=== PATIENT | male | born 1985 | race African-American/Black ===

== ENCOUNTER 2023-06-23 17:37 | Inpatient (IN) | payer OTHER ==
[2023-06-23 18:01] VITALS: BMI 24.3
[2023-06-23] MEDS ORDERED: MELATONIN 5 MG TABLETS PO SCH (22:00)
[2023-06-23] MEDS ORDERED: MAGNESIUM HYDROX 2400MG/30ML ORAL SUSPENSION 30 ML CUP PO PRN (22:37)
[2023-06-23] MEDS ORDERED: P-EPHED 60MG/TRIPROLIDI 2.5MG TABLET PO PRN (22:37)
[2023-06-23] MEDS ORDERED: ACETAMINOPHEN 325 MG TABLET (FP) PO PRN (22:37)
[2023-06-23] MEDS ORDERED: guaiFENesin 600 MG TABLET.ER (FP) PO PRN (22:37)
[2023-06-23] MEDS ORDERED: BENZONATATE 200 MG CAPSULE PO PRN (22:37)
[2023-06-23] MEDS ORDERED: DOCUSATE SODIUM 100 MG CAPSULE (FP) PO PRN (22:37)
[2023-06-23] MEDS ORDERED: LOPERAMIDE HCL 2 MG CAPSULE PO PRN (22:37)
[2023-06-23] MEDS ORDERED: POLYETHYLENE GLYCOL (HEALTHYLAX) 3350 17 GM PACKET PO PRN (22:37)
[2023-06-23] MEDS ORDERED: BENZOCAINE/MENTHOL (CHLORASEPTIC ) LOZENGE MM PRN (22:37)
[2023-06-23] MEDS ORDERED: MAG HYDROX/AL HYDROX/SIMETH 30 ML UNIT-DOSE CUP PO PRN (22:37)
[2023-06-24] MEDS: APIXABAN 5 MG TABLET PO SCH ×3 (00:31→21:25)
[2023-06-24] MEDS: CARVEDILOL 6.25 MG TABLET (FP) PO SCH ×3 (00:31→21:25)
[2023-06-24] MEDS: SACUBITRIL/VALSARTAN 24 MG-26 MG TABLET PO SCH ×3 (00:34→21:25)
[2023-06-24] MEDS: EMPAGLIFLOZIN (JARDIANCE) 10 MG TABLET PO SCH (06:49)
[2023-06-24] MEDS: PRENATAL VITAMINS W/ FOLIC ACID TABLET (FP) PO SCH (09:38)
[2023-06-24] MEDS: TORSEMIDE 20 MG TABLET (FP) PO SCH (11:17)
[2023-06-24 13:56] LABS: URINE APPEARANCE CLEAR; URINE BILIRUBIN NEGATIVE (NEGATIVE); URINE COLOR YELLOW; URINE GLUCOSE (UA) NEGATIVE (NEGATIVE); URINE KETONE NEGATIVE (NEGATIVE); URINE LEUK ESTERASE NEGATIVE (NEGATIVE); URINE NITRITE NEGATIVE (NEGATIVE); URINE PROTEIN NEGATIVE (NEGATIVE); URINE UROBILINOGEN 0.2 mg/dL (0.2-1.0)
[2023-06-24 14:06] LABS: POTASSIUM 3.2 mmol/L (3.5-5.1)
[2023-06-24 14:16] LABS: HEMATOCRIT 37.1 % (35.4-49); MCH 28.5 pg (25.7-33.7); MCHC 32.4 g/dl (32.0-35.9); MEAN CELL VOLUME 88.2 fl (80-96); MEAN PLT VOLUME 8.6 fl (7.5-11.1); PLATELET COUNT 203 10^3/uL (134-434); RDW 18.6 % (11.9-15.9); WHITE BLOOD COUNT 6.5 K/mm3 (4.0-10.0)
[2023-06-24 14:19] LABS: ALBUMIN 3.1 g/dl (3.4-5.0); BLOOD UREA NITROGEN 24.1 mg/dL (7-18); CALCIUM 8.6 mg/dL (8.5-10.1)
[2023-06-24 14:22] LABS: CREATININE 1.1 mg/dL (0.55-1.3)
[2023-06-24 14:23] LABS: BILIRUBIN,TOTAL 1.3 mg/dL (0.2-1)
[2023-06-24] MEDS ORDERED: AMMONIUM LACTATE 12% LOTION 225 GM BOTTLE TP PRN (14:32)
[2023-06-24] MEDS: THIAMINE HCL 100 MG TABLET (FP) PO SCH (21:25)
[2023-06-24] MEDS: MONTELUKAST NA 10 MG TABLET PO SCH (21:25)
[2023-06-24] MEDS: diphenhydrAMINE HCL 50 MG CAPSULE PO PRN (23:43)
[2023-06-25] MEDS: EMPAGLIFLOZIN (JARDIANCE) 10 MG TABLET PO SCH (06:40)
[2023-06-25] MEDS: TORSEMIDE 20 MG TABLET (FP) PO SCH (09:47)
[2023-06-25] MEDS: APIXABAN 5 MG TABLET PO SCH ×2 (09:47→21:50)
[2023-06-25] MEDS: PRENATAL VITAMINS W/ FOLIC ACID TABLET (FP) PO SCH (09:47)
[2023-06-25] MEDS: CARVEDILOL 6.25 MG TABLET (FP) PO SCH ×2 (09:47→21:49)
[2023-06-25] MEDS: SACUBITRIL/VALSARTAN 24 MG-26 MG TABLET PO SCH ×2 (09:47→22:12)
[2023-06-25] MEDS ORDERED: TUBERCULIN PPD 5 TU/0.1ML VIAL ID ONE ×2 (10:00→10:44)
[2023-06-25] MEDS: POTASSIUM CHLORIDE TABS 20 MEQ TABLET.ER (FP) PO SCH ×2 (13:19→21:50)
[2023-06-25] MEDS: THIAMINE HCL 100 MG TABLET (FP) PO SCH (21:50)
[2023-06-25] MEDS: MONTELUKAST NA 10 MG TABLET PO SCH (21:50)
[2023-06-25] MEDS ORDERED: diphenhydrAMINE HCL 25 MG CAPSULE (FP) PO ONE (21:51)
[2023-06-25] MEDS: diphenhydrAMINE HCL 50 MG CAPSULE PO PRN (21:52)
[2023-06-26] MEDS: EMPAGLIFLOZIN (JARDIANCE) 10 MG TABLET PO SCH (07:24)
[2023-06-26] MEDS: APIXABAN 5 MG TABLET PO SCH ×2 (10:42→21:32)
[2023-06-26] MEDS: CARVEDILOL 6.25 MG TABLET (FP) PO SCH ×2 (10:42→21:32)
[2023-06-26] MEDS: PRENATAL VITAMINS W/ FOLIC ACID TABLET (FP) PO SCH (10:42)
[2023-06-26] MEDS: POTASSIUM CHLORIDE TABS 20 MEQ TABLET.ER (FP) PO SCH ×2 (10:42→21:32)
[2023-06-26] MEDS: TORSEMIDE 20 MG TABLET (FP) PO SCH (10:43)
[2023-06-26] MEDS: SACUBITRIL/VALSARTAN 24 MG-26 MG TABLET PO SCH ×2 (10:44→21:32)
[2023-06-26] MEDS: THIAMINE HCL 100 MG TABLET (FP) PO SCH (21:32)
[2023-06-26] MEDS: MONTELUKAST NA 10 MG TABLET PO SCH (21:32)
[2023-06-26 21:55] VITALS: BP 105/70; PULSE 101; RESP 18; TEMP 97.7
[2023-06-27] MEDS: EMPAGLIFLOZIN (JARDIANCE) 10 MG TABLET PO SCH (06:04)
== END 2023-06-27 02:20 | disposition short-term general hospital (02) | DRG 772 ==
LOC: YASAS 17:37 → Y5N 22:48
PROVIDERS: ADMIT Allergy & Immunology; ATTEND Psychiatry & Neurology Pain Medicine
PROC: HZ42ZZZ Group Counseling for Substance Abuse Treatment, Cognitive-Behavioral (ICD-10-PCS; principal; 2023-06-23)
DX: F10.20 Alcohol dependence, uncomplicated (principal); F14.20 Cocaine dependence, uncomplicated; F17.210 Nicotine dependence, cigarettes, uncomplicated; F19.280 Other psychoactive substance dependence with psychoactive substance-induced anxiety disorder; F19.282 Other psychoactive substance dependence with psychoactive substance-induced sleep disorder; I50.9 Heart failure, unspecified; E87.6 Hypokalemia; L85.3 Xerosis cutis; Z86.711 Personal history of pulmonary embolism; Z79.01 Long term (current) use of anticoagulants; Z95.0 Presence of cardiac pacemaker; Z99.89 Dependence on other enabling machines and devices
CPT/HCPCS: 0241U-QW; 36415; 80053; 81003; 82962; 85027; 86593; 86780; 93005; 93010

== ENCOUNTER 2023-06-26 22:54 | Inpatient (IN) | payer OTHER ==
[2023-06-26] MEDS ORDERED: FUROSEMIDE 40 MG/4 ML INJECTABLE VIAL ONE (23:52)
[2023-06-27] MEDS: FUROSEMIDE 40 MG/4 ML INJECTABLE VIAL IVPUSH ONE ×2 (00:07→10:54)
[2023-06-27 00:30] LABS: BASO % 1.4 % (0-2.0); EOS % 4.8 % (0-4.5); HEMATOCRIT 40.2 % (35.4-49); HEMOGLOBIN 13.2 GM/dL (11.7-16.9); LYMPH % 33.7 % (8-40); MCH 28.8 pg (25.7-33.7); MCHC 32.7 g/dl (32.0-35.9); MEAN CELL VOLUME 88.1 fl (80-96); MEAN PLT VOLUME 8.5 fl (7.5-11.1); MONO % 13.2 % (3.8-10.2); NEUT % 46.9 % (42.8-82.8); PLATELET COUNT 231 10^3/uL (134-434); RBC 4.57 M/mm3 (4.00-5.60); RDW 18.9 % (11.9-15.9); WHITE BLOOD COUNT 5.2 K/mm3 (4.0-10.0)
[2023-06-27 00:45] LABS: POTASSIUM 4.2 mmol/L (3.5-5.1)
[2023-06-27 00:47] LABS: CALCIUM 9.3 mg/dL (8.5-10.1)
[2023-06-27 00:48] LABS: BLOOD UREA NITROGEN 25.9 mg/dL (7-18)
[2023-06-27 00:51] LABS: CREATININE 1.3 mg/dL (0.55-1.3)
[2023-06-27 00:53] LABS: BILIRUBIN,TOTAL 0.9 mg/dL (0.2-1); TOT PROT 7.2 g/dl (6.4-8.2)
[2023-06-27 00:56] LABS: N-TERMINAL BNP 2661.9 pg/ml (5-125)
[2023-06-27] MEDS ORDERED: TRIMETHOBENZAMIDE HCL 200MG/2ML INJ IM ONE (01:28)
[2023-06-27] MEDS: TRIMETHOBENZAMIDE HCL 200MG/2ML INJ IM ONE (01:32)
[2023-06-27 06:22] VITALS: BMI 27.3
[2023-06-27] MEDS: FUROSEMIDE 40 MG/4 ML INJECTABLE VIAL IVPUSH SCH ×3 (06:44→13:49)
[2023-06-27 08:35] LABS: BASO % 1.2 % (0-2.0); EOS % 4.2 % (0-4.5); HEMATOCRIT 38.2 % (35.4-49); LYMPH % 33.4 % (8-40); MCH 29.3 pg (25.7-33.7); MCHC 33.9 g/dl (32.0-35.9); MEAN CELL VOLUME 86.2 fl (80-96); MEAN PLT VOLUME 8.4 fl (7.5-11.1); MONO % 15.7 % (3.8-10.2); NEUT % 45.5 % (42.8-82.8); PLATELET COUNT 229 10^3/uL (134-434); RBC 4.43 M/mm3 (4.00-5.60); RDW 18.6 % (11.9-15.9); WHITE BLOOD COUNT 4.8 K/mm3 (4.0-10.0)
[2023-06-27 08:48] LABS: POTASSIUM 3.8 mmol/L (3.5-5.1)
[2023-06-27 09:05] LABS: CALCIUM 9.4 mg/dL (8.5-10.1)
[2023-06-27 09:06] LABS: ALBUMIN 3.3 g/dl (3.4-5.0); MAGNESIUM 2.4 mg/dL (1.8-2.4)
[2023-06-27 09:09] LABS: CREATININE 1.3 mg/dL (0.55-1.3); PHOSPHOROUS 4.6 mg/dL (2.5-4.9)
[2023-06-27 09:10] LABS: BILIRUBIN,TOTAL 1.2 mg/dL (0.2-1)
[2023-06-27 09:11] LABS: TOT PROT 7.2 g/dl (6.4-8.2)
[2023-06-27] MEDS ORDERED: APIXABAN 5 MG TABLET PO SCH (10:00)
[2023-06-27] MEDS: NICOTINE 7 MG/24 HOURS TOPICAL PATCH TD SCH (10:54)
[2023-06-27] MEDS: APIXABAN 5 MG TABLET PO SCH (10:54)
[2023-06-27] MEDS: CARVEDILOL 6.25 MG TABLET (FP) PO SCH (10:54)
[2023-06-27 14:48] LABS: HIV INTERPRETATION NEGATIVE (NEGATIVE)
[2023-06-27] MEDS: EMPAGLIFLOZIN (JARDIANCE) 10 MG TABLET PO SCH (17:36)
[2023-06-27] MEDS: CARVEDILOL 3.125 MG TABLET (FP) PO SCH (22:28)
[2023-06-27] MEDS: MONTELUKAST NA 10 MG TABLET PO SCH (22:28)
[2023-06-27] MEDS: MELATONIN 5 MG TABLETS PO ONE (23:10)
[2023-06-28] MEDS: FUROSEMIDE 40 MG/4 ML INJECTABLE VIAL IVPUSH SCH (05:34)
[2023-06-28 08:02] LABS: POTASSIUM 3.8 mmol/L (3.5-5.1)
[2023-06-28 08:04] LABS: BASO % 1.1 % (0-2.0); HEMATOCRIT 39.7 % (35.4-49); HEMOGLOBIN 13.3 GM/dL (11.7-16.9); LYMPH % 31.4 % (8-40); MCH 28.9 pg (25.7-33.7); MCHC 33.4 g/dl (32.0-35.9); MEAN CELL VOLUME 86.5 fl (80-96); MEAN PLT VOLUME 8.6 fl (7.5-11.1); NEUT % 44.5 % (42.8-82.8); PLATELET COUNT 241 10^3/uL (134-434); RBC 4.59 M/mm3 (4.00-5.60); RDW 18.4 % (11.9-15.9); WHITE BLOOD COUNT 4.6 K/mm3 (4.0-10.0)
[2023-06-28 08:32] LABS: CALCIUM 9.4 mg/dL (8.5-10.1)
[2023-06-28 08:33] LABS: MAGNESIUM 2.3 mg/dL (1.8-2.4)
[2023-06-28 08:34] LABS: ALBUMIN 3.2 g/dl (3.4-5.0)
[2023-06-28 08:36] LABS: CREATININE 1.3 mg/dL (0.55-1.3)
[2023-06-28 08:37] LABS: BILIRUBIN,TOTAL 1.2 mg/dL (0.2-1); PHOSPHOROUS 4.6 mg/dL (2.5-4.9); TOT PROT 7.7 g/dl (6.4-8.2)
[2023-06-28] MEDS: FOLIC ACID 1 MG TABLET (FP) PO SCH (10:01)
[2023-06-29 08:31] LABS: POTASSIUM 4.1 mmol/L (3.5-5.1)
[2023-06-29 08:45] LABS: CALCIUM 9.3 mg/dL (8.5-10.1)
[2023-06-29 08:46] LABS: ALBUMIN 3.2 g/dl (3.4-5.0); BLOOD UREA NITROGEN 25.9 mg/dL (7-18)
[2023-06-29 08:49] LABS: CREATININE 1.3 mg/dL (0.55-1.3)
[2023-06-29 08:50] LABS: BILIRUBIN,TOTAL 1.1 mg/dL (0.2-1); TOT PROT 7.5 g/dl (6.4-8.2)
[2023-06-29 10:04] LABS: HIV INTERPRETATION NEGATIVE (NEGATIVE)
[2023-06-30 07:34] LABS: BASO % 1.2 % (0-2.0); EOS % 6.9 % (0-4.5); HEMATOCRIT 39.3 % (35.4-49); HEMOGLOBIN 13.2 GM/dL (11.7-16.9); LYMPH % 33.6 % (8-40); MCH 29.3 pg (25.7-33.7); MCHC 33.6 g/dl (32.0-35.9); MEAN CELL VOLUME 87.2 fl (80-96); MEAN PLT VOLUME 8.2 fl (7.5-11.1); MONO % 16.6 % (3.8-10.2); NEUT % 41.7 % (42.8-82.8); PLATELET COUNT 230 10^3/uL (134-434); RBC 4.51 M/mm3 (4.00-5.60); RDW 18.3 % (11.9-15.9); WHITE BLOOD COUNT 5.2 K/mm3 (4.0-10.0)
[2023-06-30 07:55] LABS: POTASSIUM 3.9 mmol/L (3.5-5.1)
[2023-06-30 08:01] LABS: BLOOD UREA NITROGEN 27.1 mg/dL (7-18); MAGNESIUM 2.6 mg/dL (1.8-2.4)
[2023-06-30 08:04] LABS: CREATININE 1.4 mg/dL (0.55-1.3)
[2023-07-01 07:28] LABS: HEMATOCRIT 38.9 % (35.4-49); HEMOGLOBIN 13.1 GM/dL (11.7-16.9); MCHC 33.5 g/dl (32.0-35.9); MEAN CELL VOLUME 86.3 fl (80-96); MEAN PLT VOLUME 8.3 fl (7.5-11.1); PLATELET COUNT 226 10^3/uL (134-434); RBC 4.51 M/mm3 (4.00-5.60); RDW 18.2 % (11.9-15.9); WHITE BLOOD COUNT 4.9 K/mm3 (4.0-10.0)
[2023-07-01 07:30] LABS: POTASSIUM 3.8 mmol/L (3.5-5.1)
[2023-07-01 07:40] LABS: ALBUMIN 3.2 g/dl (3.4-5.0); BLOOD UREA NITROGEN 27.9 mg/dL (7-18); MAGNESIUM 2.5 mg/dL (1.8-2.4)
[2023-07-01 07:43] LABS: CREATININE 1.3 mg/dL (0.55-1.3); PHOSPHOROUS 4.2 mg/dL (2.5-4.9)
[2023-07-01 07:45] LABS: BILIRUBIN,TOTAL 1.2 mg/dL (0.2-1); TOT PROT 7.6 g/dl (6.4-8.2)
[2023-07-01 11:04] VITALS: BP 108/67; PULSE 112; RESP 24; TEMP 97.8
[2023-07-01] MEDS ORDERED: TORSEMIDE 20 MG TABLET (FP) PO SCH (14:00)
== END 2023-07-01 13:30 | disposition other institution (70) | DRG 194 ==
LOC: JER 22:54 → JERBED 06-27 01:27 → OBSVTOIN 06-27 02:39 → J4W 06-27 05:17
PROVIDERS: ADMIT Internal Medicine; ATTEND Internal Medicine
DX: I11.0 Hypertensive heart disease with heart failure (principal); I50.23 Acute on chronic systolic (congestive) heart failure; I42.0 Dilated cardiomyopathy; J98.11 Atelectasis; I42.7 Cardiomyopathy due to drug and external agent; I42.6 Alcoholic cardiomyopathy; T40.5X5A Adverse effect of cocaine, initial encounter; R60.0 Localized edema; F10.10 Alcohol abuse, uncomplicated; I27.20 Pulmonary hypertension, unspecified; F17.210 Nicotine dependence, cigarettes, uncomplicated; I08.1 Rheumatic disorders of both mitral and tricuspid valves; F14.10 Cocaine abuse, uncomplicated; Z86.711 Personal history of pulmonary embolism; Z95.810 Presence of automatic (implantable) cardiac defibrillator
CPT/HCPCS: 0241U-QW; 36415; 71045-TC-FY; 80048; 80053; 83036; 83735; 83880; 84100; 84484; 85025; 85027; 87389; 93005; 93010; 93306-TC; 99285-25; G0378

== ENCOUNTER 2023-07-01 14:27 | Inpatient (IN) | payer OTHER ==
[2023-07-01 15:02] VITALS: BMI 27.3
[2023-07-01] MEDS ORDERED: BENZOCAINE/MENTHOL (CHLORASEPTIC ) LOZENGE MM PRN (15:38)
[2023-07-01] MEDS ORDERED: guaiFENesin 600 MG TABLET.ER (FP) PO PRN (15:38)
[2023-07-01] MEDS ORDERED: POLYETHYLENE GLYCOL (HEALTHYLAX) 3350 17 GM PACKET PO PRN (15:38)
[2023-07-01] MEDS ORDERED: ACETAMINOPHEN 325 MG TABLET (FP) PO PRN (15:38)
[2023-07-01] MEDS ORDERED: MAG HYDROX/AL HYDROX/SIMETH 30 ML UNIT-DOSE CUP PO PRN (15:38)
[2023-07-01] MEDS ORDERED: IBUPROFEN 400 MG TABLET (FP) PO PRN (15:38)
[2023-07-01] MEDS ORDERED: NALOXONE HCL 0.4 MG/ML VIAL IM PRN (15:38)
[2023-07-01] MEDS ORDERED: BENZONATATE 200 MG CAPSULE PO PRN (15:38)
[2023-07-01] MEDS ORDERED: MAGNESIUM HYDROX 2400MG/30ML ORAL SUSPENSION 30 ML CUP PO PRN (15:38)
[2023-07-01] MEDS ORDERED: LOPERAMIDE HCL 2 MG CAPSULE PO PRN (15:38)
[2023-07-01] MEDS ORDERED: NALOXONE HCL (KLOXXADO) 8 MG SPRAY NS PRN (15:38)
[2023-07-02] MEDS: MELATONIN 5 MG TABLETS PO SCH (00:03)
[2023-07-02] MEDS: CARVEDILOL 3.125 MG TABLET (FP) PO SCH (00:03)
[2023-07-02] MEDS: MONTELUKAST NA 10 MG TABLET PO SCH (00:03)
[2023-07-02] MEDS: THIAMINE HCL 100 MG TABLET (FP) PO SCH (00:03)
[2023-07-02] MEDS: PRENATAL VITAMINS W/ FOLIC ACID TABLET (FP) PO SCH (00:05)
[2023-07-02] MEDS: hydrOXYzine PAMOATE 25 MG CAPSULE (FP) PO PRN (02:40)
[2023-07-02] MEDS: ALBUTEROL SO4 HFA INHALER IH PRN (02:49)
[2023-07-02] MEDS ORDERED: AMMONIUM LACTATE 12% LOTION 225 GM BOTTLE TP PRN (09:58)
[2023-07-02] MEDS ORDERED: PATIENT'S OWN MEDICATION (NON-FORMULARY) (Melatonin [Melatonin] 5 MG Tablet) PO SCH (10:00)
[2023-07-02] MEDS: TORSEMIDE 20 MG TABLET (FP) PO SCH (10:31)
[2023-07-02] MEDS: SACUBITRIL/VALSARTAN 49 MG-51 MG TABLET PO SCH (10:32)
[2023-07-02] MEDS: EMPAGLIFLOZIN (JARDIANCE) 10 MG TABLET PO SCH (10:32)
[2023-07-03] MEDS: APIXABAN 5 MG TABLET PO SCH (21:11)
[2023-07-06] MEDS: IBUPROFEN 600 MG TABLET (FP) PO PRN (10:13)
[2023-07-07 07:25] VITALS: TEMP 98
[2023-07-07 09:46] VITALS: BP 112/77; PULSE 100; RESP 18
== END 2023-07-07 14:40 | disposition left against medical advice (07) | DRG 770 ==
LOC: YASAS 14:27 → Y3W 23:43
PROVIDERS: ADMIT Allergy & Immunology; ATTEND Psychiatry & Neurology Pain Medicine
PROC: HZ42ZZZ Group Counseling for Substance Abuse Treatment, Cognitive-Behavioral (ICD-10-PCS; principal; 2023-07-01)
DX: F14.20 Cocaine dependence, uncomplicated (principal); F10.20 Alcohol dependence, uncomplicated; F17.210 Nicotine dependence, cigarettes, uncomplicated; I50.9 Heart failure, unspecified; Z98.0 Intestinal bypass and anastomosis status; Z86.711 Personal history of pulmonary embolism; Z99.89 Dependence on other enabling machines and devices
CPT/HCPCS: 87635